=== PATIENT | male | born 1955 | race Caucasian/White ===

== ENCOUNTER → 2021-08-16 04:15 | Outpatient (CLI) | payer MEDICARE, OTHER, SELFPAY ==
[2021-08-16 17:37] LABS: SARS-CoV-2 RNA PCR Negative
== END ==
PROVIDERS: PCP Internal Medicine; Visit Provider Internal Medicine
DX: Z20.822 Contact with and (suspected) exposure to COVID-19 (principal)
CPT/HCPCS: C9803; U0003; U0005

== ENCOUNTER 2022-06-03 00:11 | Day surgery (SDC) | payer MEDICARE, OTHER, SELFPAY ==
[2022-05-28 12:43] VITALS: BMI 28.5
[2022-06-03 08:12] VITALS: BP 138/69; PULSE 64; RESP 16; TEMP 36.6; O2SAT 99
[2022-06-03] MEDS: LACTATED RINGERS 1,000 ML 150 ML IV CONT (08:21)
--- NOTE | 2022-06-03 08:24 | PM.IMHP ---
H&P: HPI History of Present Illness Date/Time: 06/03/22 08:24 Chief Complaint: Neoplasia screening. Narrative: This is a 67-year-old white male patient presents for screening colonoscopy. Patient has a prior history of colon polyps in 2016. Family history is also significant for colon polyps. Patient presents today for screening colonoscopy. He reports that his current weight appetite and bowel movements are normal. Patient denies abdominal pain or bleeding. Further recommendations will be given after endoscopy. Review of Systems Review of Systems: Review of systems is noncontributory. [facility] Past Medical History Medical History (Updated 04/03/22 @ 15:17 by Reece Gerard MD) Asthma Hypertension Surgical History Surgical History (Updated 04/03/22 @ 14:57 by Emily Arechiga CMA) H/O cardiac radiofrequency ablation Family History Family History Mother Patient's mother is Social History Social History (Updated 04/03/22 @ 14:57 by Emily Arechiga CMA) Smoking status: Never smoker Second hand tobacco smoke exposure: No Alcohol intake: current Drinks per week: 3 Alcohol use details: BEERS Substance use: never Substance use type: does not use Living arrangements: with family Spiritual care concerns: No Meds Home Medications and Allergies Home Medications Medication Instructions Recorded Confirmed Type cetirizine 10 mg tablet (Zyrtec) 10 mg PO QPM 07/23/19 06/03/22 History fluticasone propionate 50 2 spray intranasal DAILY 07/30/19 06/03/22 History mcg/actuation nasal spray,suspension albuterol sulfate 90 mcg/actuation 2 puff inhalation Q4-6H PRN 01/02/21 06/03/22 Rx aerosol inhaler (ProAir HFA) shortness of breath or wheezing #8.5 grams apixaban 5 mg tablet (Eliquis) 5 mg PO BID #60 tabs 12/21/21 06/03/22 Rx tamsulosin 0.4 mg capsule 0.4 mg PO DAILY #90 caps 02/19/22 06/03/22 Rx amlodipine 2.5 mg tablet 2.5 mg PO DAILY 04/03/22 06/03/22 History losartan 100 mg tablet 100 mg PO DAILY 05/28/22 06/03/22 History montelukast 10 mg tablet 10 mg PO DAILY PRN Allergy Symptoms 05/28/22 06/03/22 History (Singulair) Allergies Allergy/AdvReac Type Severity Reaction Status Date / Time No Known Allergies Allergy Mild Verified 06/03/22 08:03 Vital Signs Vital Signs - 24 hr 06/03/22 08:12 Temperature 97.8 F Pulse Rate 64 Respiratory Rate 16 Blood Pressure 138/69 Pulse Oximetry 99 Oxygen Delivery Room Air Exam Narrative: Physical exam reveals patient to be alert. Vital signs stable. HEENT exam is unremarkable. Patient is anicteric. Lungs are clear to auscultation and percussion. Heart is without murmur or extra sounds. Abdominal exam bowel sounds are present soft nontender with no organomegaly. Digital external rectal exam is normal. Assessment and Plan Assessment and plan (1) History of colon polyps: Code(s): Z86.010 - Personal history of colonic polyps Status: Acute Assessment and Plan: Patient presents today for screening colonoscopy. He has a prior history of colon polyps 2016. Family history is significant his brother has had polyps as well. Anticipate follow-up screening colonoscopy at 5 year intervals. Further recommendations may be given after endoscopy.
--- NOTE | 2022-06-03 09:07 | P.PNAN_ITS ---
Anes - Initial Pre Proc Eval Procedure: Operation Date: 06/03/22 08:30 Proposed Procedures p Screening Colonoscopy - Reece Gerard MD Date/Time: 06/03/22 09:07 Surgeon: Reece Gerard MD Pre Op Diagnosis: hx of colon polyps Patient Data Age: 67 Gender: M Height: 1.8 m Weight: 93 kg Last Vital Signs Temp 97.8 F 06/03/22 08:12 Pulse 64 06/03/22 08:12 Resp 16 06/03/22 08:12 BP 138/69 06/03/22 08:12 Pulse Ox 99 06/03/22 08:12 O2 Del Method Room Air 06/03/22 08:12 Allergies Allergy/AdvReac Type Severity Reaction Status Date / Time No Known Allergies Allergy Mild Verified 06/03/22 08:03 Home Medications Medication Instructions Recorded Confirmed Type cetirizine 10 mg tablet (Zyrtec) 10 mg PO QPM 07/23/19 06/03/22 History fluticasone propionate 50 2 spray intranasal DAILY 07/30/19 06/03/22 History mcg/actuation nasal spray,suspension albuterol sulfate 90 mcg/actuation 2 puff inhalation Q4-6H PRN 01/02/21 06/03/22 Rx aerosol inhaler (ProAir HFA) shortness of breath or wheezing #8.5 grams apixaban 5 mg tablet (Eliquis) 5 mg PO BID #60 tabs 12/21/21 06/03/22 Rx tamsulosin 0.4 mg capsule 0.4 mg PO DAILY #90 caps 02/19/22 06/03/22 Rx amlodipine 2.5 mg tablet 2.5 mg PO DAILY 04/03/22 06/03/22 History losartan 100 mg tablet 100 mg PO DAILY 05/28/22 06/03/22 History montelukast 10 mg tablet 10 mg PO DAILY PRN Allergy Symptoms 05/28/22 06/03/22 History (Angelika) Patient hx anesthesia problems: none Family hx anesthesia problems: none Results Review: All pre-operative results and documents have been reviewed as part of the pre- operative evaluation. PMF[facility] Past Medical History Medical History (Updated 04/03/22 @ 15:17 by Reece Gerard MD) Asthma Hypertension Surgical History Surgical History (Updated 04/03/22 @ 14:57 by Emily Arechiga CMA) H/O cardiac radiofrequency ablation Family History Family History Mother Patient's mother is Social History Social History (Updated 04/03/22 @ 14:57 by Emily Arechiga CMA) Smoking status: Never smoker Second hand tobacco smoke exposure: No Alcohol intake: current Drinks per week: 3 Alcohol use details: BEERS Substance use: never Substance use type: does not use Living arrangements: with family Spiritual care concerns: No Anes - Eval Final PreProcedure Day of Procedure 06/03/22 09:07 Patient weight: normal Heart: regular rate and rhythm Lungs: clear to auscultation Airway: Mallampati scale class II Neurological: alert and oriented Last oral intake: >/= 8 hours ASA classification: III Emergent: no Anesthetic plan: proceed Anesthesia type and monitoring: general GIVS and standard monitoring Results Review: All pre-operative results and documents have been reviewed as part of the pre- operative evaluation. Informed Consent: The patient's anesthetic plan and its attendant risks and benefits were discussed with the patient/family/POA. Questions were solicited and answers provided to the satisfaction of the patient/family/POA.
[2022-06-03 09:21] VITALS: BP 104/73; PULSE 69; RESP 25; O2SAT 96
[2022-06-03 09:31] VITALS: BP 114/74; PULSE 73; RESP 26; O2SAT 100
[2022-06-03 09:41] VITALS: BP 127/83; PULSE 65; RESP 21; O2SAT 99
== END 2022-06-03 09:53 | disposition home or self-care (01) ==
PROVIDERS: PCP Internal Medicine; Visit Provider Internal Medicine Gastroenterology
PROC: 0DJD8ZZ Inspection of Lower Intestinal Tract, Via Natural or Artificial Opening Endoscopic (ICD-10-PCS; CPT 45378; principal; 2022-06-03 08:30)
DX: Z12.11 Encounter for screening for malignant neoplasm of colon (principal); Z79.01 Long term (current) use of anticoagulants; Z79.51 Long term (current) use of inhaled steroids; Z83.71 Family history of colonic polyps; Z86.010 Personal history of colon polyps; K57.30 Diverticulosis of large intestine without perforation or abscess without bleeding; K64.8 Other hemorrhoids; I10 Essential (primary) hypertension; J45.909 Unspecified asthma, uncomplicated
CPT/HCPCS: G0105; J2704; J7120

== ENCOUNTER 2023-08-15 15:37 | Emergency (ER) | payer MEDICARE, OTHER, SELFPAY ==
[2023-08-15 15:52] VITALS: BP 142/83; PULSE 81; RESP 18; TEMP 37.1; O2SAT 97
--- NOTE | 2023-08-15 15:54 | ED.URI ---
HPI - URI/Sore Throat General Chief Complaint: Upper Respiratory Infection Stated Complaint: Cough,Congestion,Runny Nose Source: patient, RN notes reviewed and old records reviewed Mode of arrival: ambulatory Limitations: no limitations History of Present Illness HPI Narrative: 68 year male presents to [facility] with complaint productive cough with sinus congestion for 3 weeks. Patient states worsened over the last week. Patient states cough is productive with brown sputum. Patient states taking Benadryl valves with sinus congestion, but not cough, patient denies shortness of breath, chest pain, dizziness, weakness, fever. patient states went to [facility] to day and had COVID and flu testing done that were both negative. Related Data Home Medications Medication Instructions Recorded Confirmed cetirizine 10 mg tablet (Zyrtec) 10 mg PO QPM 07/23/19 08/15/23 fluticasone propionate 50 2 spray intranasal DAILY 07/30/19 08/15/23 mcg/actuation nasal spray,suspension amlodipine 2.5 mg tablet 2.5 mg PO DAILY 04/03/22 08/15/23 losartan 100 mg tablet 100 mg PO DAILY 05/28/22 08/15/23 fluticasone furoate 200 2 ea inhalation DAILY 08/14/22 08/15/23 mcg-vilanterol 25 mcg/dose inhalation powder (Breo Ellipta) Allergies Allergy/AdvReac Type Severity Reaction Status Date / Time No Known Allergies Allergy Mild Verified 08/15/23 15:52 Review of Systems Constitutional: Constitutional: Reports no additional constitutional complaints Eyes: Eyes: Reports no additional eye complaints ENT: Reports system reviewed and no additional complaints, except as documented and Reports nasal congestion Cardiovascular: Cardiovascular: Reports no additional cardiovascular complaints Respiratory: Respiratory: Reports change in phlegm color ( patient states lip is brown), Reports chest congestion and Reports cough Neurologic: Reports system reviewed and no additional complaints, except as documented [facility] Past Medical History Medical History (Updated 08/15/23 @ 16:09 by Maral Benitez APRN) Asthma Encounter for screening for malignant neoplasm of prostate Hypertension Surgical History Surgical History H/O cardiac radiofrequency ablation Family History Family History Mother Patient's mother is Social History Social History Smoking status: Never smoker Second hand tobacco smoke exposure: No Alcohol intake: current Drinks per week: 3 Alcohol use details: BEERS Substance use: never Substance use type: does not use Lack of Transportation: No Lack of Food: Never True Current Housing: I Have Housing Concerned About Future Housing: No Difficulty Paying Gas/Electric Bills: No Difficulty Paying for Meds: No Currently Unemployed: No Education: Associate Degree Difficulty w/ Childcare or Family Care: No Living arrangements: with family Spiritual care concerns: No Comments At the time of my signature, I reviewed and agree with the nursing past medical, surgical, social, and family history. There is no relevant family history pertinent to the patient complaint. Exam Const: General: cooperative, healthy appearing, no acute distress and well nourished Nutritional Appearance: well nourished Orientation/consciousness: patient oriented x3 Limitations: no limitations HENMT: Head: normal to inspection and normocephalic Ears: external ears normal, TM's normal bilaterally, mastoids normal and Abnormal EAC present Face/Nose/Sinus: normal facial exam Face and sinus: normal facial exam Mouth: Yes Normal oral and palatal mucosa present, Yes oropharynx normal and Yes moist mucous membranes Throat: posterior oropharynx normal, tonsils normal, uvula midline and no uvular edema Eyes: General: appearance normal, both eyes an
--- NOTE | 2023-08-15 16:05 | ECG_ITS ---
Measurements Intervals [place] Rate: 78 P: -36 RI: 115 QRS: 12 QRSD: 122 T: 45 QT: 362 QTc: 414 Interpretive Statements SINUS RHYTHM WITH SHORT RI INTERVAL RIGHT BUNDLE-BRANCH BLOCK BORDERLINE ECG NO PREVIOUS ECG AVAILABLE FOR COMPARISON Electronically Signed On 08-16-2023 13:49:34 ENVIRONMENTAL AIDE by Dylan Contreras M.D.
== END 2023-08-15 16:12 | disposition home or self-care (01) ==
PROVIDERS: Emergency Provider Registered Nurse; PCP Internal Medicine
DX: J20.9 Acute bronchitis, unspecified (principal); I45.10 Unspecified right bundle-branch block; J45.909 Unspecified asthma, uncomplicated; I10 Essential (primary) hypertension
CPT/HCPCS: 93005; 99213; G0463